=== PATIENT | female | born 1995 | race Caucasian/White ===

== ENCOUNTER 2018-03-03 16:42 | Emergency (ER) | payer SELFPAY ==
[~2018-03-03] VITALS: Ht 162.6 cm; Wt 59.0 kg
[2018-03-03 16:47] VITALS: BP 136/95
--- NOTE | 2018-03-03 16:52 | NUR ---
ED Nurse Note: Patient presents to ER due to pain over the left shoulder x 3 days; Reports no injury or heavy lifting. Reports no rash. Patient had intermittent numbness and tingling in left upper arm. Patient able to reach right shoulder without any problem. Patient reports decreased pain with pain meds. No facial grimacing or guarding noted.
--- NOTE | 2018-03-03 18:31 | NUR ---
ED Nurse Note: followed up [place] with xray
--- NOTE | 2018-03-03 18:52 | Emergency Room Report ---
History of Present Illness General Chief Complaint: Pain Source: Patient (Tevin Mullins) Present Illness HPI 22-year-old female with history of heavy tobacco use here complaining of left shoulder and scapular pain denying any injury. He reports that 3 days ago she started having epigastric pain with acid reflux. Patient then started feeling pain over left upper back and shoulder 2 days ago denying any strenuous physical activity. Radiation from the shoulder. Denies tingling numbness. Patient is a heavy tobacco user 3 years, takes Advil on a daily basis. And eats spicy food. She'll vomiting, diarrhea, lower abdominal pain, dysuria, constipation, drug use, alcohol ingestion. Patient has regular menses LMP was the week ago. Denies sexual activityas recent travel and antibiotic use. Denies start of new medication (Tevin Mullins) Allergies: Coded Allergies: No Known Allergies (Unverified , 03/03/18) Patient History Past Medical History: see triage record Past Surgical History: none Pertinent Family History: none Last Menstrual Period: 02/12/2018 Now: No Immunizations: UTD Reviewed Nursing Documentation: PMH: Agreed; PSxH: Agreed (Tevin Mullins) Nursing Documentation-PMH Past Medical History: No Stated History (Tevin Mullins) Review of Systems All Other Systems: negative except mentioned in HPI (Tevin Mullins) Physical Exam Vital Signs Date Time Temp Pulse Resp B/P (MAP) Pulse Ox O2 Delivery O2 Flow Rate FiO2 03/03/18 16:47 98.2 90 16 136/95 96 Room Air Sp02 EP Interpretation: reviewed, normal General Appearance: normal inspection, well appearing, no apparent distress, alert, GCS 15 Head: normocephalic Eyes: bilateral eye normal inspection, bilateral eye PERRL ENT: normal ENT inspection, normal pharynx Neck: normal inspection, full range of motion, supple, thyroid normal, no meningismus Respiratory: normal inspection, lungs clear, no rhonchi, no wheezing Cardiovascular #1: normal inspection, no edema, no gallop, no murmur Gastrointestinal: soft, no mass, no organomegaly, no peritonitis, non-distended , no guarding, no hernia, no rebound, tenderness - epigastric Rectal: deferred Genitourinary: no CVA tenderness Musculoskeletal: normal inspection, back normal, digits/nails normal, normal range of motion, non-tender Neurologic: normal inspection, alert, oriented x3, responsive Psychiatric: normal inspection, judgement/insight normal, memory normal Skin: normal inspection, normal color, no rash, warm/dry Lymphatic: normal inspection, no adenopathy, axilla node tender (R) (Tevin Mullins) Medical Decision Making PA Attestation all diagnosis and treatment plans were reviewed and discussed with my supervising physician Dr. Garcia (Tevin Mullins) Diagnostic Impression: Primary Impression: Gastric ulcer Additional Impressions: Referred abdominal pain Upper back pain on left side ER Course 22-year-old female with history of heavy tobacco use here complaining of left shoulder and scapular pain denying any injury. He reports that 3 days ago she started having epigastric pain with acid reflux. Patient then started feeling pain over left upper back and shoulder 2 days ago denying any strenuous physical activity. Radiation from the shoulder. Denies tingling numbness. Patient is a heavy tobacco user 3 years, takes Advil on a daily basis. And eats spicy food. She'll vomiting, diarrhea, lower abdominal pain, dysuria, constipation, drug use, alcohol ingestion. Patient has regular menses LMP was the week ago. Denies sexual activityas recent travel and antibiotic use. Denies start of new medication Ddx considered but are not limited to gastric ulcer, gastritis, referred shoulder pain due to gastric ulcer, heart disease Vital signs: are WNL, pt. is afebrile H&PE are most consistent with gastric ulcer and referred shoulder pain ORDERS: EKG, abdominal ultrasound, Tylenol, omeprazole ED INTERVENTIONS: None required at this time. DISCHARGE: At this time pt. is stable for d/c to home. Will provide printed patient care instructions, and any necessary prescriptions. Care plan and follow up instructions have been discussed with the patient prior to discharge. follow with primary care provider for referral to gastroenterology and endoscopy for further assessment of possible gastric ulcer avoid smoking, avoid NSAIDs, avoid eating spicy and acidic food. Upper back pain and shoulder pain secondary to gastric ulcer Tylenol for pain (Tevin Mullins) Other X-Ray Diagnostic Results Other X-Ray Diagnostic Results : X-Ray ordered: abdominal # of Views/Limited Vs Complete: 3 View Indication: Other - epigastric pain and left upper back pain EP Interpretation: Yes PA Xray: Interpretation reviewed, by supervising MD, and agrees with findings. Interpretation: no dislocation, no soft tissue swelling, no fractures, nonspecific bowel gas, other Impression: No acute disease Electronically Signed by: tevin KNAPP Scribe Text no free air, unremarklable abd series, (Tevin Mullins) Other X-Ray Diagnostic Results : Electronically Signed by: ARIA documentation reviewed by me and is accurate, Arik Garcia MD (Arik Garcia MD) Last Vital Signs Date Time Temp Pulse Resp B/P (MAP) Pulse Ox O2 Delivery O2 Flow Rate FiO2 03/03/18 16:47 98.2 90 16 136/95 96 Room Air (Tevin Mullins) Disposition: HOME, SELF-CARE Condition: Stable Scripts Omeprazole (OMEPRAZOLE) 20 Mg Capsule.dr 20 MG ORAL DAILY, #30 CAP Prov: Tevin Mullins 03/03/18 Acetaminophen* (TYLENOL EXTRA STRENGTH*) 500 Mg Tablet 500 MG ORAL Q8H PRN for Prn Headache/Temp > 101, #30 TAB 0 Refills Prov: Tevin Mullins 03/03/18 Referrals: NOT CHOSEN IPA/,REFERRING (PCP) Patient Instructions: Gastritis, Adult, Shoulder Pain, [id number] Additional Instructions: follow with her primary care provider for referral to gastroenterology and endoscopy as history of heavy tobacco use, spicy food, and use of Advil can cause ulceration of the gastric mucosa and have referred pain to the shoulder. Avoid spicy food, avoid smoking, take Tylenol for pain Tevin Mullins Mar 03, 2018 18:52 Arik Garcia MD Mar 04, 2018 14:14
[2018-03-03] MEDS ORDERED: OMEPRAZOLE20 M2 ORAL (18:53)
[2018-03-03] MEDS ORDERED: TYLENOL EXTRA500 MG ORAL (18:53)
--- NOTE | 2018-03-03 19:15 | NUR ---
ED Nurse Note: Patient seen, treated, medically cleared for discharged from medical care. Discharge instructions and prescriptions given with repeat verbalization by pt. Instructed pt to follow up care with primary care phycain within one week. Awake, alert and oriented x4. After care instructions, were given. All medical devices such as ID band were removed. Patient ambulated out with all personal belongings with steady gait.
[2018-03-03 19:19] VITALS: BP 134/90
== END 2018-03-03 19:15 | disposition home or self-care (01) ==
LOC: EMR 17:35
DX: K25.9 Gastric ulcer, unspecified as acute or chronic, without hemorrhage or perforation (principal); R10.9 Unspecified abdominal pain; M54.6 Pain in thoracic spine; M25.512 Pain in left shoulder; F17.200 Nicotine dependence, unspecified, uncomplicated
CPT/HCPCS: 74018; 93005; 99283